=== PATIENT | male | born 2000 | race Caucasian/White ===

== ENCOUNTER 2024-04-20 12:08 | Emergency (ER) | payer OTHER ==
[2024-04-20] MEDS ORDERED: LIDOCAINE 1% MPF 5 ML VIAL ONE (14:03)
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
== END 2024-04-20 14:46 | disposition home or self-care (01) ==
LOC: ER 12:08
PROC: 0HQFXZZ Repair Right Hand Skin, External Approach (ICD-10-PCS; principal; 2024-04-20)
DX: S61.411A Laceration without foreign body of right hand, initial encounter (principal)
CPT/HCPCS: 12002; J2001; 99283

== ENCOUNTER 2024-07-18 11:31 | Emergency (ER) | payer OTHER ==
[2024-07-18] MEDS ORDERED: IBUPROFEN 400 MG TAB ONE (12:18)
--- NOTE | 2024-07-18 12:56 | RAD REPORT ---
Exam:Foot Left 3 View CLINICAL HISTORY: Left foot pain FINDINGS: No fracture or dislocation seen
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
[2024-07-18 13:24] VITALS: BP 117/55; TEMP 98.1; O2SAT 96
== END 2024-07-18 13:07 | disposition home or self-care (01) ==
LOC: ER 11:31
DX: M79.672 Pain in left foot (principal); S50.311A Abrasion of right elbow, initial encounter
CPT/HCPCS: 99282

== ENCOUNTER 2024-07-26 10:00 | Emergency (ER) | payer OTHER ==
[2024-07-26] MEDS ORDERED: TETRACAINE HCL 0.5% 4ML OPTH ONE (11:13)
[2024-07-26] MEDS ORDERED: FLUORESCEIN SODIUM 1 MG/WRAP ONE ×2 (11:13)
[2024-07-26] MEDS ORDERED: NA CHLORIDE 0.9% 500 ML ONE (11:52)
--- NOTE | 2024-07-26 12:04 | EDPHYS ---
Physician Documentation [facility] Name: Kyle Gastelum Age: 23 yrs Sex: Male : 2000 Arrival Date: 07/26/2024 Time: 10:00 Bed Treatment Private MD: ED Physician Shukri Hewitt HPI: 07/26 12:00 This 23 yrs old Male presents to ER via Ambulatory with complaints of Foreign Body In sp3 Eye - BL. 12:00 23-year-old male with no past medical history presents with bilateral eye pain while he sp3 was grinding metal with eye protection but states that due to the articulation a little bit of it may have gotten into both eyes. 7 yesterday where he states he washed it all out but continued to rub his eyes due to the pain. Presents for further evaluation. No prior injuries noted. He does not wear contact lenses. Vision is preserved however there is burning pain bilaterally.. Historical: - Allergies: 10:15 No Known Allergies; tm6 - PMHx: 10:15 None; tm6 - PSHx: 10:15 None; tm6 - Immunization history:: Client reports receiving the 2nd dose of the Covid vaccine. - Infectious Disease History:: Denies. - Social history:: Smoking status: Patient reports the use of cigarette tobacco products, smokes one-half pack cigarettes per day. ROS: 12:01 Constitutional: Negative for fever, chills, and weight loss, ENT: Negative for injury, sp3 pain, and discharge, Neck: Negative for injury, pain, and swelling, Cardiovascular: Negative for chest pain, palpitations, and edema, Respiratory: Negative for shortness of breath, cough, wheezing, and pleuritic chest pain, Abdomen/GI: Negative for abdominal pain, nausea, vomiting, diarrhea, and constipation, Back: Negative for injury and pain, MS/Extremity: Negative for injury and deformity, Skin: Negative for injury, rash, and discoloration, Neuro: Negative for headache, weakness, numbness, tingling, and seizure, Psych: Negative for depression, anxiety, suicide ideation, homicidal ideation, and hallucinations, Allergy/Immunology: Negative for hives, rash, and allergies, Endocrine: Negative for neck swelling, polydipsia, polyuria, polyphagia, and marked weight changes, 12:01 All other systems are negative, Exam: 12:01 Constitutional: This is a well developed, well nourished patient who is awake, alert, sp3 and in no acute distress. Head/Face: Normocephalic, atraumatic. ENT: Nares patent. No nasal discharge, no septal abnormalities noted. External auditory canals are clear. Oropharynx with no redness, swelling, or masses, exudates, or evidence of obstruction, uvula midline. Mucous membranes moist. Neck: Trachea midline, no thyromegaly or masses palpated, and no cervical lymphadenopathy. Supple, full range of motion without nuchal rigidity, or vertebral point tenderness. No Meningismus. Chest/axilla: Normal chest wall appearance and motion. Nontender with no deformity. No lesions are appreciated. Cardiovascular: Regular rate and rhythm with a normal S1 and S2. No gallops, murmurs, or rubs. Normal PMI, no JVD. No pulse deficits. Respiratory: Lungs have equal breath sounds bilaterally, clear to auscultation and percussion. No rales, rhonchi or wheezes noted. No increased work of breathing, no retractions or nasal flaring. Abdomen/GI: Soft, non-tender, with normal bowel sounds. No distension or tympany. No guarding or rebound. No evidence of tenderness throughout. 12:01 Eyes: Tetracaine applied bilaterally with fluorescein dye which demonstrate multiple corneal abrasions throughout both eyes. Nothing over the anterior chamber. No hyphema or anterior chamber fluid. Pupils equal round reactive to light and visual acuity is preserved.. Vital Signs: 10:13 Temp 97.9(O); tm6 10:14 BP 127 / 75; Pulse 71; Pulse Ox 100% on R/A; MAP 91 mmHg; Weight 58.97 kg; Height 5 ft. tm6 8 in. ; Pain 8/10; 10:14 Body Mass Index 19.77 (58.97 kg, 172.72 cm) tm6 10:14 Pain Scale: Adult tm6 MDM: 11:11 Medical Screening Exam initiated sp3 12:02 Data reviewed: vital signs, nurses notes. ED course: Corneal abrasion bilaterally. sp3 Jay lens will be placed bilaterally with 500 mL normal saline per eye to ensure no recurrent fragments. Slit-lamp not available. No rust rings noted on exam or metal in the cornea. I have urged patient to follow-up with ophthalmology for reevaluation.. Administered Medications: 11:30 Drug: Tetracaine Ophthalmic Drops 0.5 % 1 drops Ophthalmic once {Note: administered by roxanne Hewitt.} Route: Ophthalmic; Site: both eyes; 12:08 Follow up: Response: No adverse reaction [facility] 11:55 Drug: NS 0.9% IV 500 ml IV at bolus once; to be given as irrigation for right eye jl7 {Note: Right Eye.} Route: IV; Rate: bolus; Site: Other; 12:13 Follow up: Response: No adverse reaction; IV Status: Completed infusion [facility] 12:07 Drug: Fluorescein Ophthalmic Strip 1 strip Ophthalmic once {Note: administered by Dr. roxanne hewitt.} Route: Ophthalmic; Site: both eyes; 12:13 Follow up: Response: No adverse reaction [facility] Disposition Summary: 07/26/24 12:03 Discharge Ordered Notes: Location: Home sp3 Condition: Stable sp3 Diagnosis - Bilateral corneal abrasion, resolved foreign body sp3 Followup: sp3 - With: Private Physician - When: Upon discharge from the Emergency Department - Reason: Continuance of care Discharge Instructions: - Discharge Summary Sheet sp3 - Corneal Abrasion sp3 Forms: - Medication Reconciliation Form sp3 - Antibiotic Education sp3 - Prescription Opioid Use sp3 - Patient Portal Instructions sp3 - Leadership Thank You Letter sp3 Prescriptions: - Maxitrol 3.5mg/mL-10,000 unit/mL-0.1 % Ophthalmic drops, suspension - instill 2 drop OPHTHALMIC route every 4 hours; 5 milliliter; Refills: 0, sp3 Product Selection Permitted Signatures: Elroy Dang RN RN jl7 Shukri Hewitt MD MD sp3 Afsaneh Diaz RN RN tm6
--- NOTE | 2024-07-26 12:04 | ER ---
Nurse's Notes [facility] Name: Kyle Gastelum Age: 23 yrs Sex: Male : 2000 Arrival Date: 07/26/2024 Time: 10:00 Bed Treatment Private MD: Diagnosis: Bilateral corneal abrasion, resolved foreign body Presentation: 07/26 10:14 Chief complaint: Patient states: I was grinding some stainless steel and I felt some of tm6 it go up into my eyes. This was about 2am. I still feel it in my eyes. Coronavirus screen: Client denies travel out of the [place] in the last 14 days. Ebola Screen: Patient negative for fever greater than or equal to 101.5 degrees Fahrenheit, and additional compatible Ebola Virus Disease symptoms Patient denies exposure to infectious person. Patient denies travel to an Ebola-affected area in the 21 days before illness onset. No symptoms or risks identified at this time. Initial Sepsis Screen: Does the patient meet any 2 criteria? No. Patient's initial sepsis screen is negative. Does the patient have a suspected source of infection? No. Patient's initial sepsis screen is negative. Risk Assessment: Do you want to hurt yourself or someone else? Patient reports no desire to harm self or others. Onset of symptoms was July 26, 2024 at 02:00. 10:14 Method Of Arrival: Ambulatory tm6 10:14 Acuity: SHIRA 4 tm6 Triage Assessment: 10:15 General: Appears in no apparent distress. Behavior is calm, cooperative. Pain: tm6 Complains of pain in right eye and left eye. EENT: Reports pain in right eye and left eye metal in eyes. Neuro: Level of Consciousness is awake, alert, obeys commands, Oriented to person, place, time, situation. Cardiovascular: Patient's skin is warm and dry. Respiratory: Airway is patent Respiratory effort is even, unlabored, Respiratory pattern is regular, symmetrical. GI: No signs and/or symptoms were reported involving the gastrointestinal system. Abdomen is flat, non-distended. : No signs and/or symptoms were reported regarding the genitourinary system. Derm: No signs and/or symptoms reported regarding the dermatologic system. Musculoskeletal: No signs and/or symptoms reported regarding the musculoskeletal system. Historical: - Allergies: 10:15 No Known Allergies; tm6 - PMHx: 10:15 None; tm6 - PSHx: 10:15 None; tm6 - Immunization history:: Client reports receiving the 2nd dose of the Covid vaccine. - Infectious Disease History:: Denies. - Social history:: Smoking status: Patient reports the use of cigarette tobacco products, smokes one-half pack cigarettes per day. Screenin:04 [facility] ED Fall Risk Assessment (Adult) History of falling in the last 3 months, jl7 including since admission No falls in past 3 months (0 pts) Confusion or Disorientation No (0 pts) Intoxicated or Sedated No (0 pts) Impaired Gait No (0 pts) Mobility Assist Device Used No (0 pt) Altered Elimination No (0 pt) Score/Fall Risk Level 0 - 2 = Low Risk. Abuse screen: Denies threats or abuse. Denies injuries from another. Nutritional screening: No deficits noted. Tuberculosis screening: No symptoms or risk factors identified. Assessment: 12:00 Reassessment: Pt refusing irrigation of left eye, ERD notified. jl7 12:10 Reassessment: Pt reports "It feels like a scratch". Patient states symptoms have jl7 improved. Vital Signs: 10:13 Temp 97.9(O); tm6 10:14 BP 127 / 75; Pulse 71; Pulse Ox 100% on R/A; MAP 91 mmHg; Weight 58.97 kg; Height 5 ft. tm6 8 in. ; Pain 8/10; 10:14 Body Mass Index 19.77 (58.97 kg, 172.72 cm) tm6 10:14 Pain Scale: Adult tm6 ED Course: 10:02 Patient arrived in ED. ra3 10:03 Shukri Hewitt MD is Attending Physician. sp3 10:15 Triage completed. tm6 10:15 Arm band placed on left wrist. tm6 11:30 Assist provider with eye exam of both eyes. using fluorescein stain, Performed by Shukri Hewitt MD Patient tolerated well. 11:30 Patient did not have IV access during this emergency room visit. jl7 12:04 Patient has correct armband on for positive identification. Provided Education on: use jl7 of call schaeffer. 12:04 Eye irrigation of right eye w/ Jay lens IV tubing with 500 ml normal saline, Patient jl7 tolerated well. Administered Medications: 11:30 Drug: Tetracaine Ophthalmic Drops 0.5 % 1 drops Ophthalmic once {Note: administered by roxanne Hewitt.} Route: Ophthalmic; Site: both eyes; 12:08 Follow up: Response: No adverse reaction [facility] 11:55 Drug: NS 0.9% IV 500 ml IV at bolus once; to be given as irrigation for right eye jl7 {Note: Right Eye.} Route: IV; Rate: bolus; Site: Other; 12:13 Follow up: Response: No adverse reaction; IV Status: Completed infusion [facility] 12:07 Drug: Fluorescein Ophthalmic Strip 1 strip Ophthalmic once {Note: administered by Dr. roxanne hewitt.} Route: Ophthalmic; Site: both eyes; 12:13 Follow up: Response: No adverse reaction [facility] Medication: 12:04 VIS not applicable for this client. [facility] Outcome: 12:03 Discharge ordered by MD. quinn 12:14 Discharged to home ambulatory, [facility] 12:14 Condition: stable 12:14 Discharge instructions given to patient, Instructed on discharge instructions, follow up and referral plans. medication usage, Demonstrated understanding of instructions, follow-up care, medications, Prescriptions given X 1, 12:15 Patient left the ED. [facility] Signatures: Elroy Dang RN RN jl7 Shukri Hewitt MD MD sp3 Afsaneh Diaz RN RN 6 Chastity Yin 3
[2024-07-26 12:18] VITALS: TEMP 97.9
[2024-07-26 12:20] VITALS: BP 127/75; O2SAT 100
== END 2024-07-26 12:15 | disposition home or self-care (01) ==
LOC: ER 10:00
DX: S05.02XA Injury of conjunctiva and corneal abrasion without foreign body, left eye, initial encounter (principal); S05.01XA Injury of conjunctiva and corneal abrasion without foreign body, right eye, initial encounter; F17.210 Nicotine dependence, cigarettes, uncomplicated
CPT/HCPCS: 99284; J7040